=== PATIENT | male | born 2000 | race Caucasian/White ===

== ENCOUNTER 2022-06-14 23:20 | Emergency (ER) | payer OTHER, BC ==
[2022-06-14 23:44] VITALS: PULSE 88
[2022-06-15 01:17] VITALS: BP 130/89
== END 2022-06-15 01:13 | disposition home or self-care (01) ==
LOC: FB.ED 23:20
DX: S09.90XA Unspecified injury of head, initial encounter (principal); J45.909 Unspecified asthma, uncomplicated; V47.6XXA Car passenger injured in collision with fixed or stationary object in traffic accident, initial encounter; Y92.410 Unspecified street and highway as the place of occurrence of the external cause
CPT/HCPCS: 70450; 99282; 99284

== ENCOUNTER 2022-10-21 04:53 | Emergency (ER) | payer BC ==
[2022-10-21] MEDS ORDERED: methylPREDNISolone Sodium Succinate 125 MG/2 ML SDV IM ONE (05:06)
[2022-10-21] MEDS ORDERED: Albuterol/Ipratropium 3.0-0.5 MG/3 ML Neb Soln NEB ONE (05:09)
[2022-10-21 06:24] VITALS: BP 110/77
[2022-10-21 06:53] VITALS: PULSE 105
== END 2022-10-21 06:53 | disposition home or self-care (01) ==
LOC: FB.ED 04:53
DX: J45.901 Unspecified asthma with (acute) exacerbation (principal); Z79.899 Other long term (current) drug therapy; Z87.891 Personal history of nicotine dependence
CPT/HCPCS: 96372; 99284; J2930; J7620